=== PATIENT | female | born 1990 | race African-American/Black ===

== ENCOUNTER 2018-10-22 15:02 | Inpatient (IN) | payer MEDICAID, OTHER ==
[~2018-10-22] VITALS: Ht 165.1 cm; Wt 85.7 kg
[2018-10-22] MEDS ORDERED: ALBU2.5V13 IH (15:15)
[2018-10-22] MEDS ORDERED: [UNRECOGNIZED DRUG - OTHER] (15:15)
[2018-10-22] MEDS ORDERED: KETOROLAC 30MG/ML VIAL IV STA (15:46)
[2018-10-22] MEDS ORDERED: ALBUTEROL (0.083%) 2.5MG/3ML NEB HHN STA ×2 (15:46→17:45)
[2018-10-22] MEDS ORDERED: SODIUM CHLORIDE 0.9% 1,000 ML IV ONE ×2 (15:46→17:45)
[2018-10-22 16:47] LABS: CLARITY URINE CLEAR (CLEAR); COLOR URINE YELLOW (YELLOW); KETONES URINE TRACE (NEGATIVE); LEUKOCYTE ESTERASE URINE NEGATIVE (NEGATIVE); NITRITE URINE NEGATIVE (NEGATIVE); OCCULT BLOOD URINE NEGATIVE (NEGATIVE); PH URINE 8.5 (4.5-8.0); PROTEIN URINE NEGATIVE (NEGATIVE); SPECIFIC GRAVITY URINE 1.016 (1.005-1.030)
[2018-10-22 16:50] LABS: BASOPHILS % 0.7 % (0.0-2.0); EOSINOPHILS % 0.7 % (0.0-5.0); HEMATOCRIT. 41.7 % (36.0-48.0); HEMOGLOBIN. 14.2 g/dL (12.0-16.0); MEAN CORPUSCULAR HEMOGLOBIN 28.4 pg (28.0-32.0); MEAN CORPUSCULAR VOLUME 83.4 fL (81.0-99.0); NEUTROPHILS % 76.6 % (40.0-76.0); PLATELET 355 x1000/uL (130-400); RED CELL DISTRIBUTION WIDTH 13.8 % (11.6-14.6)
[2018-10-22 16:52] LABS: HCG SCREEN NEGATIVE
[2018-10-22 16:56] LABS: CHLORIDE 107 mEq/L (98-107)
[2018-10-22 17:18] LABS: INR 1.1; PROTHROMBIN TIME 10.8 sec (9.6-11.0)
[2018-10-22] MEDS ORDERED: MAGNESIUM 2 G PREMIX 50 ML IV STA (17:45)
[2018-10-22] MEDS ORDERED: METHYLPREDNISOLONE SOD SUCC 125 MG/2 ML VIAL IV ONE (17:45)
[2018-10-22] MEDS ORDERED: IPRATROPIUM BROMIDE (0.02%) 0.5MG/2.5ML NEB HHN STA (17:45)
[2018-10-22] MEDS ORDERED: MORPHINE SULFATE 4 MG/ML CPJ (NOT FOR IM USE) IV ONE (18:30)
[2018-10-22] MEDS ORDERED: ONDANSETRON HCL 4MG/2ML INJ IV ONE (18:30)
[2018-10-22 19:00] LABS: BG CARBOXYHEMOGLOBIN 0.3 % (0.5-1.5); BG DEOXYHEMOGLOBIN 5.1 % (0.0-5.0); BG FRACTION INSPIRED OXYGEN 21; BG HCO3 ACT 21.8 mmol/L (22.0-26.0); BG METHEMOGLOBIN 0.1 % (0.0-1.5); BG OXYGEN SATURATION 94.9 % (92.0-98.5); BG OXYHEMOGLOBIN 94.5 % (94.0-97.0); BG PCO2 34.3 mmHg (35.0-45.0); BG PH 7.421 (7.350-7.450); BG PO2 75.2 mmHg (75.0-100.0); BG SAMPLE SITE RIGHT BRACHIAL; BG TOTAL HEMOGLOBIN 13.9 g/dL (12.0-18.0); BG VENT MODE ROOM AIR
[2018-10-22 21:12] VITALS: BP 110/63
[2018-10-23] VITALS: BP 110/62
[2018-10-23] MEDS ORDERED: HYDROCODONE/ACETAMINOPHEN 5/325MG TABLET PO PRN
[2018-10-23] MEDS: IPRATROPIUM/ALBUTEROL 0.5-3(2.5)MG/3ML NEB HHN SCH ×4 (00:55→12:40)
[2018-10-23 04:00] VITALS: BP 123/77
[2018-10-23 08:00] VITALS: BP 116/63
[2018-10-23] MEDS ORDERED: ENOXAPARIN 40MG/0.4ML SYR SUBCUT SCH (09:00)
[2018-10-23] MEDS ORDERED: ENOXAPARIN 30MG/0.3ML SYR SUBCUT SCH (09:00)
[2018-10-23 12:00] VITALS: BP 108/73
[2018-10-23 13:39] LABS: BASOPHILS % 0.1 % (0.0-2.0); HEMATOCRIT. 39.4 % (36.0-48.0); HEMOGLOBIN. 13.2 g/dL (12.0-16.0); LYMPHOCYTES % 15.9 % (20.0-50.0); MEAN CORPUSCULAR HEMOGLOBIN 28.5 pg (28.0-32.0); MEAN PLATELET VOLUME 7.9 fl (7.4-10.4); PLATELET 363 x1000/uL (130-400); RED BLOOD CELL COUNT 4.64 mill/uL (4.2-5.4); RED CELL DISTRIBUTION WIDTH 13.8 % (11.6-14.6)
[2018-10-23 13:46] LABS: CHLORIDE 109 mEq/L (98-107)
[2018-10-23 15:47] VITALS: BP 123/58
== END 2018-10-23 16:39 | disposition home or self-care (01) | DRG 249 ==
LOC: ER 15:02 → 7WST 17:46 → EDBEDREQ 17:58 → ENRESERV 20:19
PROVIDERS: ADMIT Internal Medicine Geriatric Medicine; ATTEND Internal Medicine Geriatric Medicine
DX: A08.4 Viral intestinal infection, unspecified (principal); J45.901 Unspecified asthma with (acute) exacerbation; E66.9 Obesity, unspecified; G89.29 Other chronic pain; M54.9 Dorsalgia, unspecified; K52.9 Noninfective gastroenteritis and colitis, unspecified; Z79.899 Other long term (current) drug therapy; Z68.31 Body mass index [BMI] 31.0-31.9, adult
CPT/HCPCS: 36415; 36600; 71045; 80048; 82375; 82805; 84484; 84703; 87804; 93005; 94640; 99285; J1650; J1885; J2270; J2405; J2930; J3475; J7030; J7611; J7620

== ENCOUNTER 2024-08-03 10:05 | Emergency (ER) | payer SELFPAY ==
[~2024-08-03] VITALS: Ht 165.1 cm; Wt 101.0 kg
[~2024-08-03 10:05] MED LIST: ALBU2.5V13 IH; [UNRECOGNIZED DRUG - OTHER]
[2024-08-03 10:12] VITALS: O2SAT 73
[2024-08-03 10:34] LABS: BASOPHILS % 0.9 % (0.0-2.0); EOSINOPHILS % 4.6 % (0.0-5.0); HEMATOCRIT. 41.3 % (36.0-48.0); HEMOGLOBIN. 13.8 g/dL (12.0-16.0); LYMPHOCYTES % 37.8 % (20.0-50.0); MEAN CORPUSCULAR HEMOGLOBIN 27.6 pg (28.0-32.0); MEAN CORPUSCULAR HGB CONC 33.4 g/dL (31.0-37.0); MEAN CORPUSCULAR VOLUME 82.5 fL (81.0-99.0); MEAN PLATELET VOLUME 7.2 fl (7.4-10.4); MONOCYTES % 9.5 % (2.0-8.0); NEUTROPHILS % 47.2 % (40.0-76.0); PLATELET 402 x1000/uL (130-400); RED BLOOD CELL COUNT 5.01 mill/uL (4.2-5.4); RED CELL DISTRIBUTION WIDTH 13.5 % (11.6-14.6); WHITE BLOOD COUNT 5.6 x1000/uL (4.5-11.0)
[2024-08-03 10:53] LABS: HCG SCREEN NEGATIVE
[2024-08-03 10:58] LABS: CLARITY URINE CLOUDY (CLEAR); COLOR URINE YELLOW (YELLOW); GLUCOSE URINE NEGATIVE (NEGATIVE); KETONES URINE NEGATIVE (NEGATIVE); LEUKOCYTE ESTERASE URINE TRACE (NEGATIVE); NITRITE URINE NEGATIVE (NEGATIVE); OCCULT BLOOD URINE NEGATIVE (NEGATIVE); PROTEIN URINE NEGATIVE (NEGATIVE); SPECIFIC GRAVITY URINE 1.015 (1.005-1.030)
[2024-08-03 11:09] LABS: CHLORIDE 110 mEq/L (98-107); POTASSIUM 4.3 mEq/L (3.5-5.1); SODIUM 139 mEq/L (136-145)
[2024-08-03 11:10] LABS: CALCIUM 9.3 mg/dL (8.7-10.4); CARBON DIOXIDE 24 mEq/L (21-32)
[2024-08-03 11:15] LABS: CREATININE 0.6 mg/dL (0.6-1.0); GLUCOSE 94 mg/dL (70-105); UREA NITROGEN BLOOD 6 mg/dL (9-23)
[2024-08-03] MEDS: KETOROLAC 30MG/ML VIAL IM ONE (11:22)
[2024-08-03 11:42] LABS: TROPONIN I HIGH SENSITIVITY < 4 ng/L (3.0-34)
[2024-08-03 12:00] LABS: MUCUS URINE 1+ /lpf (< = 2+); SQUAMOUS EPITHELIAL CELL URINE 2+ /lpf (RARE/1+)
[2024-08-03 12:01] LABS: BACTERIA URINE 4+; RBC URINE 0-2 /hpf (0-2)
[2024-08-03 12:10] VITALS: BP 136/84; PULSE 68; RESP 16; TEMP 36.8; O2SAT 73
== END 2024-08-03 12:30 | disposition home or self-care (01) ==
LOC: ER 10:05
DX: R07.89 Other chest pain (principal); J45.909 Unspecified asthma, uncomplicated
CPT/HCPCS: 80048; 81003; 81025; 84703; 85025; 85379; 84484; 36415; 71045; 93005; 96372; 99285; J1885; Z7610

== ENCOUNTER 2025-03-30 13:04 | Emergency (ER) | payer SELFPAY ==
[~2025-03-30] VITALS: Ht 170.2 cm; Wt 100.0 kg
[2025-03-30 13:13] VITALS: TEMP 38.1; O2SAT 97
[2025-03-30] MEDS ORDERED: ACETAMINOPHEN 500MG TABLET PO ONE (14:15)
[2025-03-30] MEDS ORDERED: LIDOCAINE 5% PATCH TOP SCH (14:15)
[2025-03-30] MEDS ORDERED: ONDANSETRON HCL 4MG/2ML INJ IV ONE (14:15)
[2025-03-30] MEDS: SODIUM CHLORIDE 0.9% 1,000 ML IV ONE (14:15)
[2025-03-30] MEDS ORDERED: KETOROLAC 15MG/ML VIAL IV ONE (14:15)
[2025-03-30 14:29] LABS: BASOPHILS % 0.5 % (0.0-2.0); EOSINOPHILS % 0.7 % (0.0-5.0); HEMATOCRIT. 37.5 % (36.0-48.0); HEMOGLOBIN. 12.6 g/dL (12.0-16.0); LYMPHOCYTES % 7.1 % (20.0-50.0); MEAN PLATELET VOLUME 7.6 fl (7.4-10.4); MONOCYTES % 5.3 % (2.0-8.0); NEUTROPHILS % 86.4 % (40.0-76.0); PLATELET 373 x1000/uL (130-400); RED BLOOD CELL COUNT 4.65 mill/uL (4.2-5.4); RED CELL DISTRIBUTION WIDTH 14.1 % (11.6-14.6)
[2025-03-30 14:49] LABS: CLARITY URINE CLEAR (CLEAR); COLOR URINE YELLOW (YELLOW); GLUCOSE URINE NEGATIVE (NEGATIVE); KETONES URINE TRACE (NEGATIVE); LEUKOCYTE ESTERASE URINE TRACE (NEGATIVE); NITRITE URINE NEGATIVE (NEGATIVE); OCCULT BLOOD URINE TRACE (NEGATIVE); PH URINE 7.5 (4.5-8.0); PROTEIN URINE NEGATIVE (NEGATIVE); SPECIFIC GRAVITY URINE 1.017 (1.005-1.030); UROBILINOGEN URINE 1.0 E.U./dL (0.2-1.0)
[2025-03-30 14:49] LABS: CREATININE 0.7 mg/dL (0.6-1.0); UREA NITROGEN BLOOD < 5 mg/dL (9-23)
[2025-03-30 14:51] LABS: HCG SCREEN NEGATIVE
[2025-03-30] MEDS: KETOROLAC 15MG/ML VIAL IV NR (15:01)
[2025-03-30] MEDS: LORAZEPAM 2MG/ML UD SYRINGE IV NR (15:01)
[2025-03-30] MEDS: ONDANSETRON HCL 4MG/2ML INJ IV NR (15:01)
[2025-03-30 15:13] LABS: SQUAMOUS EPITHELIAL CELL URINE 3+ /lpf (RARE/1+)
[2025-03-30 15:14] LABS: BACTERIA URINE 1+; RBC URINE 0-2 /hpf (0-2); WBC URINE 0-2 /hpf (0-2)
[2025-03-30 15:49] LABS: PROTEIN TOTAL 7.5 g/dL (6.0-8.3)
[2025-03-30 15:50] LABS: ASPARTATE AMINOTRANSFERASE 16 IU/L (<34)
[2025-03-30 15:51] LABS: BILIRUBIN DIRECT 0.3 mg/dL (<=3.0); BILIRUBIN TOTAL 0.8 mg/dL (0.1-1.0)
[2025-03-30] MEDS: LIDOCAINE 5% PATCH TOP SCH (15:55)
[2025-03-30] MEDS ORDERED: LIDO700A30 TP (15:56)
[2025-03-30 16:00] VITALS: TEMP 98.1
[2025-03-30] MEDS: ACETAMINOPHEN 500MG TABLET PO NR (16:00)
[2025-03-30 17:13] VITALS: BP 126/79; PULSE 97; RESP 14; O2SAT 96
== END 2025-03-30 17:15 | disposition home or self-care (01) ==
LOC: ER 13:04 → EDBEDREQ 14:05 → CANBEDREQ 16:34 → ER 17:15
DX: R07.89 Other chest pain (principal); M54.9 Dorsalgia, unspecified; J45.909 Unspecified asthma, uncomplicated; Z55.6 Problems related to health literacy; Z75.3 Unavailability and inaccessibility of health-care facilities
CPT/HCPCS: 99285; 74176; 96374; 96361; 71045; 96375; 80076; 80048; 81003; 84703; 83690; 85025; 36415; J1885; J2060; J2405; J7030